=== PATIENT | female | born 1980 | race Hispanic/Latino ===

== ENCOUNTER → 2017-12-28 17:07 | Outpatient (CLI) | payer OTHER, SELFPAY ==
[2017-12-28 18:09] LABS: Absolute Lymphocyte Count 2.17 X10^3/ul (0.83-4.51); Absolute Neutrophil Count 6.4 X10^3/uL (2.0-7.7); Basophil# 0.03 X10^3/uL; Basophil% 0.3 % (0-1); Eosinophil# 0.27 X10^3/uL; Eosinophils% 2.8 % (0-5); Hematocrit 42.3 % (37-47); Hemoglobin 13.7 g/dl (12.0-15.0); Lymphocyte # 2.17 X10^3/ul (4.0); Lymphocyte % 22.8 % (19-41); Mean Corp Hgb Conc 32.4 g/gl (32-36); Mean Corpuscular Hgb 29.2 pg (27.0-32.0); Mean Corpuscular Volume 90.2 fL (81-99); Mean Platelet Vol. 10.1 fl (6.2-12.0); Monocyte# 0.65 X10^3/uL; Monocyte% 6.8 % (0-10); Neutrophil # 6.38 X10^3/uL (2.7-7.7); Neutrophil % 67.2 % (47-70); POSITIVE COUNT NO; POSITIVE DIFFERENTIAL NO; POSITIVE MORPHOLOGY NO; Platelet Count 273 K/mm3 (150-450); RBC Distribution Width SD 42.7 fl (35.1-43.9); Red Blood Count 4.69 M/mm3 (4.2-5.4); White Blood Count 9.5 K/mm3 (4.4-11.0)
[2017-12-28 19:36] LABS: ALB/GLOB Ratio 0.9 RATIO (0.9-2.4); AST(SGOT) 12 U/L (15-37); Alanine Aminotransfer ALT/SGPT 20 U/L (13-56); Albumin, Serum 3.7 g/dL (3.2-5.0); Alkaline Phosphatase 56 U/L (45-117); Anion Gap 8 (5-15); BUN 12 mg/dL (7-18); Calcium,Total 8.8 mg/dL (8.5-10.1); Chloride 103 mmol/L (98-107); Creatinine, Serum 0.67 mg/dL (0.55-1.02); EST Glomerular Filtration Rate 104 mL/min (>60); Est Glom Filt Rate - Afr Amer 126 mL/min (>60); Glucose 90 mg/dL (70-110); Potassium 3.7 mmol/L (3.5-5.1); Protein, Total 7.7 g/dL (6.4-8.2); Sodium Level 138 mmol/L (136-145); T4 Free Direct 0.91 ng/dL (0.76-1.46); Thyroid Stim Hormone (TSH) 1.03 uIU/mL (0.358-3.74)
== END ==
PROVIDERS: Visit Provider Internal Medicine
DX: L29.9 Pruritus, unspecified (principal)
CPT/HCPCS: 36415; 80053; 84439; 84443; 85025

== ENCOUNTER 2018-07-07 12:30 | Outpatient (RCR) | payer OTHER, SELFPAY ==
--- NOTE | 2018-06-21 12:04 | HP.PTEVAL_ITS ---
Patient's Visit Information RAKEL FAJARDO is a 38 year old F referred to Physical Therapy by VANGIE Low with a diagnosis of LBP. Date of Evaluation: 06/21/18 Physical Therapist: Berhane Noland PT, - Visit Plan Frequency: 2-3x /Week Duration: 3 Weeks Plan: Postural edu, REIL, core stab ex's, nustep, and HEP - Subjective Subjective: Pt reports her LBP started yesterday. Pt reports she has had pain in the past intermittently for the last couple years. Pt reports she was bending forward a lot when her back immediately hurt. Pt reports she is having sleep diff secondary to pain. Pt reports she has diff with sitting for a long period and standing for a long period of time. Pt also notes it can take her up to 40 minutes to get out of bed. Walking helps to decrease pain. No N or T in LE 's. No Dx tests at this time. 4/10 at rest, 8/10 at worst - Pain LBP Pain Intensity (Out of 10): 4 Pain Intensity Range: 8 - Objective Posture: Pt sits and stands with hyperlordotic curve. Neuro: B LE sensation is WNL to light touch. B patellar tendon reflex= 2/3. MMT: B LE 5/5 throughout. ROM: Pt is very limited with flex and ext. Repeated movements: REIL decreased pain. - Goals Goal 1:: Decrease LBP x 50% to aid with sleep Goal Time Frame: 2-4 Weeks Goal 2:: Increase L/S ROM x 1 grade to aid with IADL's Goal Time Frame: 2-4 Weeks Goal 3:: Increase core stability x 1 grade to aid with decreasing LBP Goal Time Frame: 2-4 Weeks Goal 4:: I with HEP Goal Time Frame: 2-4 Weeks - Rehabilitation Potential Physical Therapy Diagnosis: Pt has LBP, limited ROM, and diff with sleep secondary to L/S disc derrangement Rehabilitation Potential: Good - Anticipated Interventions Patient/Client Instruction: Educate patient on: Condition, Plan of Care For the Purpose of:: To improve self management Therapeutic Exercise to Include: Strength training, Endurance training, Body mechanics, Flexibilty training, Active ROM, Dynamic Lumbar Stabilization, Myron Exercises For the Purpose of:: To decrease pain, To increase ROM, To improve muscle performance and motor function Cryotherapy (ice pack, ice massage): Yes For the Purpose of:: To decrease pain Thank you for the opportunity to evaluate your patient. For Medicare and Medicare HMO plans, please review the plan of care and approve it. It will need to be FAXED BACK to us at [phone] for Medicare purposes. Please let me know if there are questions or concerns regarding this plan of care. Physician Signature: Date:
--- NOTE | 2018-07-07 13:08 | HP.PTDCSUM ---
HP - PT D/C Summary It has been my pleasure to treat RAKEL FAJARDO under orders from VANGIE Low, for the diagnosis of LBP for a total of 3 visit(s). Discharge Date: Please see the following information for a summary of their discharge status. - Subjective Subjective: Pt reports she has been pain free for a few days now - Pain LBP Pain Intensity (Out of 10): 0 - Objective Objective/Function: 0/10 pain in LB. Pt is now I with HEP. Pt has normal L/S ROM. Pt now has normal core stability. Rx goals achieved - Goals Goal 1:: Decrease LBP x 50% to aid with sleep Goal Progress: Goal Met Goal 2:: Increase L/S ROM x 1 grade to aid with IADL's Goal Progress: Goal Met Goal 3:: Increase core stability x 1 grade to aid with decreasing LBP Goal Progress: Goal Met Goal 4:: I with HEP Goal Progress: Goal Met - Plan Plan: Discharge to HEP - D/C Information If there are questions or concerns regarding this patient's physical therapy, please feel free to call me at [phone]. Thank you for the referral of this patient. Sincerely, Berhane Noland, PT,
== END 2018-07-07 19:00 | disposition home or self-care (01) ==
LOC: PT 12:30
PROVIDERS: Family Provider Internal Medicine; PCP Internal Medicine; Visit Provider Physician Assistant Surgical
DX: S39.012D Strain of muscle, fascia and tendon of lower back, subsequent encounter (principal)
CPT/HCPCS: 97110; 97161; 97530

== ENCOUNTER → 2018-09-15 10:51 | Outpatient (CLI) | payer OTHER, SELFPAY ==
[2018-09-15 12:23] LABS: Absolute Lymphocyte Count 1.56 X10^3/ul (0.83-4.51); Absolute Neutrophil Count 5.7 X10^3/uL (2.0-7.7); Basophil# 0.04 X10^3/uL; Basophil% 0.5 % (0-1); Eosinophil# 0.15 X10^3/uL; Eosinophils% 1.8 % (0-5); Hematocrit 42.1 % (37-47); Hemoglobin 13.8 g/dl (12.0-15.0); Lymphocyte # 1.56 X10^3/ul (4.0); Lymphocyte % 19.2 % (19-41); Mean Corp Hgb Conc 32.8 g/gl (32-36); Mean Corpuscular Hgb 29.7 pg (27.0-32.0); Mean Corpuscular Volume 90.5 fL (81-99); Mean Platelet Vol. 10.3 fl (6.2-12.0); Monocyte# 0.64 X10^3/uL; Monocyte% 7.9 % (0-10); Neutrophil % 70.4 % (47-70); Platelet Count 272 K/mm3 (150-450); RBC Distribution Width CV 12.8 % (11.6-14.6); RBC Distribution Width SD 42.1 fl (35.1-43.9); Red Blood Count 4.65 M/mm3 (4.2-5.4); White Blood Count 8.1 K/mm3 (4.4-11.0)
[2018-09-15 12:33] LABS: POSITIVE COUNT NO; POSITIVE DIFFERENTIAL NO; POSITIVE MORPHOLOGY NO
[2018-09-15 12:34] LABS: Erythrocyte Sedimentation Rate 16 mm/hr (0-20)
[2018-09-15 12:42] LABS: AST(SGOT) 14 U/L (15-37); Alanine Aminotransfer ALT/SGPT 23 U/L (13-56); Albumin, Serum 3.7 g/dL (3.2-5.0); Alkaline Phosphatase 59 U/L (45-117); BUN 14 mg/dL (7-18); Bilirubin, Direct 0.07 mg/dL (0.00-0.30); Creatinine, Serum 0.78 mg/dL (0.55-1.02); EST Glomerular Filtration Rate 87 mL/min (>60); Est Glom Filt Rate - Afr Amer 105 mL/min (>60); Globulin 3.9 g/dL (2.2-4.2); Glucose 79 mg/dL (74-106); Protein, Total 7.6 g/dL (6.4-8.2); Rheumatoid Factor < 10.0 IU/mL (<15); Uric Acid 3.8 mg/dL (2.6-6.0)
[2018-09-15 12:52] LABS: Vitamin D,25 Hydroxy 16.6 ng/mL (29.95-100.01)
[2018-09-16 16:20] LABS: ANTINUCLEAR ANTIBODIES DIRECT Negative (Negative)
[2018-09-20 14:32] LABS: Hep C Antibodies <0.1 s/co ratio (0.0-0.9); Thyroid Peroxidase AB 9 IU/mL (0-34)
== END ==
PROVIDERS: Family Provider Internal Medicine; PCP Internal Medicine; Referring Provider Specialist; Visit Provider Specialist
DX: L50.8 Other urticaria (principal); L50.3 Dermatographic urticaria
CPT/HCPCS: 36415; 80076; 82306; 82565; 82947; 83520; 84443; 84520; 84550; 85025; 85652; 86038; 86376; 86431; 86803

== ENCOUNTER → 2019-08-31 07:55 | Outpatient (CLI) | payer OTHER, SELFPAY ==
[2019-08-21 13:17] VITALS: BMI 26.7
--- NOTE | 2019-08-31 07:57 | US_ITS ---
STUDY: ABDOMINAL ULTRASOUND REASON FOR EXAM: Female, 39 years old. Abdominal pain TECHNIQUE: Transabdominal ultrasound was performed with real-time and static talavera scale imaging. TECHNICAL QUALITY: Adequate. COMPARISON: None. FINDINGS: Liver: The liver measures 13.7 cm. There is normal echogenicity of the liver. The bile ducts are within normal limits. There is hepatic color flow. The direction of portal flow is hepatopetal. There is no demonstrated mass lesion. Portal vein measurement: Gallbladder: Normal distended gallbladder. The gallbladder wall measures 2.1 mm. There is a negative sonographic Kang's sign. There is no pericholecystic fluid. There are no gallstones. Common Bile Duct (C.B.D.): The common bile duct measures 1.6 mm. Pancreas: Normal size of the head, body and tail of the pancreas. There is normal echogenicity of the pancreas. There is no demonstrated pancreatic mass or cyst. Spleen: Normal size of the spleen. The spleen measures 11.6 cm. Right Kidney: Normal size of the right kidney. The right kidney measures 11.3 x 4.9 x 3.1 cm. Normal renal cortex. The right cortex measures 1.2 cm. There is no demonstrated renal mass or cyst. There is no right hydronephrosis. Left Kidney: Normal size of the left kidney. The left kidney measures 10.3 x 4.6 x 5.9 cm. Normal renal cortex. The left cortex measures 1.6 cm. There is a 1.2 cm cyst. There is no left hydronephrosis. Aorta: Mild dilatation of the mid abdominal aorta measuring 2.5 cm diameter. I.V.C.: The IVC is patent. There is no ascites. US/Abdomen Complete IMPRESSION: Left renal cyst. Electronically Signed: Oniel Courtney DO at 18:08 EDT Tel [phone], Service support ,
== END ==
PROVIDERS: Family Provider Internal Medicine; PCP Internal Medicine; Referring Provider Internal Medicine; Visit Provider Internal Medicine
DX: R10.9 Unspecified abdominal pain (principal)
CPT/HCPCS: 76700

== ENCOUNTER → 2020-07-16 09:34 | Outpatient (CLI) | payer OTHER, SELFPAY ==
[2020-07-16 09:13] VITALS: BMI 25.7
[2020-07-16 12:30] LABS: Absolute Lymphocyte Count 1.36 X10^3/uL (0.83-4.51); Absolute Neutrophil Count 4.4 X10^3/uL (2.0-7.7); Basophil# 0.03 X10^3/uL; Basophil% 0.5 % (0-1); Eosinophil# 0.43 X10^3/uL; Eosinophils% 6.5 % (0-5); Hematocrit 41.7 % (37-47); Hemoglobin 13.3 g/dL (12.0-15.0); Lymphocyte # 1.36 X10^3/ul (4.0); Lymphocyte % 20.6 % (19-41); Mean Corp Hgb Conc 31.9 g/dL (32-36); Mean Corpuscular Hgb 29.6 pg (27.0-32.0); Mean Corpuscular Volume 92.7 fL (81-99); Mean Platelet Vol. 10.4 fl (6.2-12.0); Monocyte# 0.41 X10^3/uL; Monocyte% 6.2 % (0-10); NRBC Flagged by Analyzer 0 % (0-5); Neutrophil # 4.36 X10^3/uL (2.7-7.7); Platelet Count 242 K/mm3 (150-450); RBC Distribution Width CV 12.4 % (11.6-14.6); RBC Distribution Width SD 42.1 fl (35.1-43.9); White Blood Count 6.6 K/mm3 (4.4-11.0)
[2020-07-16 12:47] LABS: ALB/GLOB Ratio 1.1 RATIO (0.9-2.4); AST(SGOT) 8 U/L (15-37); Alanine Aminotransfer ALT/SGPT 19 U/L (13-56); Albumin, Serum 3.7 g/dL (3.2-5.0); Alkaline Phosphatase 46 U/L (45-117); Anion Gap 4 (5-15); BUN 14 mg/dL (7-18); BUN/Creat Ratio 15.8 RATIO (10-20); Calcium,Total 8.7 mg/dL (8.5-10.1); Chloride 109 mmol/L (98-107); Cholesterol 184 mg/dL (200); Creatinine, Serum 0.89 mg/dL (0.55-1.02); EST Glomerular Filtration Rate 74 mL/min (>60); Est Glom Filt Rate - Afr Amer 90 mL/min (>60); Globulin 3.5 g/dL (2.2-4.2); Glucose 86 mg/dL (74-106); High Density Lipoprotein 52 mg/dL; Potassium 3.8 mmol/L (3.5-5.1); Protein, Total 7.2 g/dL (6.4-8.2); Sodium Level 141 mmol/L (136-145); Triglycerides 77 mg/dL; Very Low Density Lipoprotein 15 mg/dL (5-40)
[2020-07-16 13:26] LABS: Vitamin D,25 Hydroxy 22.9 ng/mL
== END ==
PROVIDERS: PCP Internal Medicine; Referring Provider Nurse Practitioner Family; Visit Provider Nurse Practitioner Family
DX: Z00.00 Encounter for general adult medical examination without abnormal findings (principal); K21.9 Gastro-esophageal reflux disease without esophagitis; E55.9 Vitamin D deficiency, unspecified
CPT/HCPCS: 36415; 80053; 80061; 82306; 85025

== ENCOUNTER 2020-08-13 06:44 | Day surgery (SDC) | payer OTHER, SELFPAY ==
[2020-07-22 09:27] VITALS: BMI 25.7
--- NOTE | 2020-07-22 09:40 | HP_ITS ---
Intake Vital Signs 07/22/20 BMI 25.7 07/22/20 Height 5 ft 2 in 07/22/20 Weight: 150 lb 6 oz 07/22/20 BMI 27.5 07/22/20 BP 119/49 L 07/22/20 Blood Pressure Location Rt brachial 07/22/20 Position Sitting 07/22/20 Respiration 16 07/22/20 Pulse 52 L 07/22/20 Temp 98.2 F 07/22/20 Temp Source Temporal 07/22/20 Pulse Oximetry (%) 99 07/22/20 Oxygen Delivery Method room air Intake Visit Reasons: Gastroesophageal reflux disease (GERD) Chief Complaint: GERD [employer] Required: No Is patient in pain?: No Allergies No Known Allergies Allergy (Verified 07/22/20 09:26) Medications levonorgestrel 20 mcg/24 hours (5 yrs) 52 mg intrauterine device 1 insert INTRAUTERINE ONCE 12/28/17 [History Confirmed 07/22/20] acetaminophen 325 mg capsule 325 mg PO Q6H PRN 03/29/18 [History Confirmed 07/22/20] cholecalciferol (vitamin D3) 50 mcg (2,000 unit) capsule 50 mcg PO DAILY #90 cap 07/16/20 [Rx Confirmed 07/22/20] omeprazole 20 mg capsule,delayed release 20 mg PO DAILY #90 cap 07/16/20 [Rx Confirmed 07/22/20] Is last menstrual period known: No Post menopausal: No Patient : No PFSH Medical History (Updated 07/22/20 @ 09:[address] Adriano Wagoner MD) History of carpal tunnel syndrome (Acute) Frequent headaches (Acute) Back pain (Acute) Anxiety (Acute) GERD (gastroesophageal reflux disease) (Acute) Hemorrhoids (Acute) Surgical History (Updated 07/22/20 @ 09:25 by Kate Sweet) No pertinent past surgical history (Acute) Family History Father Cancer intestional Hypertension Grandmother Lupus Grandfather Hypertension Myocardial infarction, Onset Age: 60 Grandfather Cancer intestional Social History (Updated 07/22/20 @ 09:[address] Adriano Wagoner MD) alcohol intake: current alcohol intake frequency: a few times a month Alcohol type: wine substance use type: does not use what type of physical activity do you participate in: aerobics frequency: 3-4 times per week HPI HPI HPI: RAKEL FAJARDO, is a 40 F who presents to the office today for HPI HPI Surgical H&P: Yes HPI: RAKEL FAJARDO, is a 40 F who presents to the office today for GERD. The patient notes that over the last 5 years her GERD is been worsening. She was started on a PPI and stayed on it for 2 weeks and was seeing improvement and then stopped and then the pain came back. About 2 to 3 weeks ago she was restarted on a PPI and states that currently she is having no symptoms. ROS General General: No weight change, appetite, fatigue, colon cancer, breast cancer or weakness HEENT HEENT: No difficulty swallowing, eye injury, eye surgery, swollen glands or hoarseness Endo Endocrine: No thyroid disease, diabetes mellitus, thyroid cancer, Hair loss, heat intolerance or cold intolerance Cardio Cardiovascular: No murmur, pacemaker, heart disease, atrial fibrillation, high blood pressure, heart attack, heart stent, palpitations, shortness of breat with exertion or chest pain Psych Psychiatric: Yes anxiety; no depression or hearing voices Resp Respiratory: No shortness of breath, No sleep apnea, No cough, No COPD, No asthma, No emphysema, No wheezing Gastro Gastrointestinal: No abdominal pain, No nausea or vomiting, No diarrhea, No constipation, No blood in stool, Yes acid reflux, Yes hemorrhoids, No ulcers, No gallbladder problem, No black,tarry stools Keith Hematologic: No blood thinners, No blood disorders, No bleeding, No anemia, No blood clots Neuro Neurologic: No weakness Exam Const General: cooperative Orientation: alert, oriented x3 Resp Effort & Inspection: normal respiratory effort Auscultation: clear to auscultation bilaterally Cardio Rate: regular rate Rhythm: regular rhythm Heart Sounds: no murmurs GI Inspection: non-distended Palpation: soft, nontender Assessment & Plan 1. Gastroesophageal reflux disease, esophagitis presence not specified K21.9 Plan The patient has longstanding GERD which did not respond to the first course of PPI. Patient is here for EGD. I discussed EGD with her in detail. The patient would like to proceed with EGD. I explained endoscopy in detail to the patient. I explained the risks including but not limited to stroke or heart attack with anesthesia, perforation of the GI tract, bleeding, infection. I explained that any of these could necessitate further emergency surgery. The patient understands and all questions were answered sufficiently. The patient wishes to proceed with procedure. We discussed the current risks associated with COVID-19. While it is understood that there is a community spread of COVID-19, the risk of rich COVID-19 while at [facility] ([facility]) is very low; however, the risk cannot be completely mitigated because of the community spread of the disease. We discussed in detail the risk of exposure to and/or potential harm posed by the COVID-19 virus with having a surgery/procedure at this time versus the risk of delaying the surgery/procedure. It is not possible to know either the risk of delaying the surgery or procedure or chance of getting an infection with perfect accuracy, but a joint decision was made to proceed at this time with the scheduled surgery/procedure as indicated on the consent form. Patient was notified that we will need to comply with any screening or testing [facility] wishes to perform or that surgery may be delayed for any positive results. Adriano Wagoner MD Pager: [facility] [address] [place] [address], [address] [place] [address] Office: Plan Detail Other Orders Orders: EGD Today Coding Level of Care Code Off vis,new,level 3 Diagnoses Gastroesophageal reflux disease, esophagitis presence not specified K21.9 ??Esophagitis presence: esophagitis presence not specified 07/22/20 0940 <Electronically signed by Adriano ross MD> Date _ Adriano Wagoner MD I have re-examined the patient. There are no clinical changes since date of exam.
--- NOTE | 2020-08-13 | GASB_PTH ---
PATIENT: RAKEL WEBER LOC: EN U#:[id number] AGE/SX: 40/F ROOM: RE08/13/[address]: Dr. Adriano Wagoner MD : 1980 BED: DIS: 08/13/2020 SPEC #: [id number] RECD: 08/13/20 08:56 STATUS: DORCAS REChelsie #: [id number] STEPH: 08/13/20 00:[address]: Adriano Wagoner DEPT: SURGICAL PATHOLOGY RECD BY: Bk Goddard ENTERED: 08/13/20 08:57 SP TYPE: Gastric Bx OTHR DR: Dr. Devante Milan MD Tissues: A - Gastric mucous membrane B - Gastric mucous membrane Procedures: Special Stain Group II Surgery Specimen Level IV Alcian Blue/PAS (control) HEADER OPERATION: E[place] PRE-OP DIAGNOSIS: GERD TISSUE SUBMITTED: A - Antrum biopsy for histo and H. pylori, B - GE junction biopsy MICROSCOPIC DIAGNOSIS A. Antrum, biopsy: Mild gastritis. See microscopic description and comment. B. GE junction, biopsy: Fragments of gastroesophageal mucosa with chronic inflammation and changes consistent with gastroesophageal reflux disease. Intestinal metaplasia (goblet cell metaplasia) is not identified. See comment. SJ:rg 08/14/20 COMMENT A. The results of immunohistochemistry for Helicobacter pylori will be reported separately ([id number]). B. Alcian blue/PAS stain with matched control is used in the evaluation of the specimen. MICROSCOPIC DESCRIPTION Slides are reviewed. A. The specimen shows fragments of gastric mucosa with chronic inflammatory cell infiltrates in the lamina propria consisting of lymphocytes and plasma cells, consistent with mild chronic gastritis. GROSS DESCRIPTION A - Received in fixative is one container labeled with the patient's name and designated antrum biopsy. The specimen consists of multiple irregular fragments of light hirsch soft tissue that in aggregate measure 1 x 0.2 x 0.1 cm. The specimen is totally submitted in one cassette. B - Received in fixative is one container labeled with the patient's name and designated GE junction biopsy. The specimen consists of multiple irregular fragments of light hirsch soft tissue that in aggregate measure 0.5 x 0.4 x 0.1 cm. The specimen is totally submitted in one cassette. / ROCKY:collin 08/13/20 TC:5 CPT: 26162 x2, 10402
[2020-08-13 07:09] VITALS: BP 106/52; PULSE 64; RESP 14; TEMP 36.4; O2SAT 98; BMI 28.0
[2020-08-13 07:17] LABS: Internal QC Validated? YES +Cl - CLEAR BKGD; Pregnancy, Urine Negative Negative
[2020-08-13] MEDS: Lactated Ringers 1,000 ML 100 ML IV (07:26)
--- NOTE | 2020-08-13 08:00 | IMM_PTH ---
PATIENT: RAKEL WEBER LOC: EN U#:[id number] AGE/SX: 40/F ROOM: RE08/13/[address]: Dr. Adriano Wagoner MD : 1980 BED: DIS: 08/13/2020 SPEC #: [id number] RECD: 08/13/20 09:22 STATUS: DORCAS REQ #: [id number] STEPH: 08/13/20 08:[address]: Adriano Wagoner DEPT: IMMUNOHISTOCHEMISTRY RECD BY: Sri Kwon ENTERED: 08/13/20 09:22 SP TYPE: IMMUNO OTHR DR: Dr. Devante Milan MD Tissues: A - Stomach, NOS Procedures: H Pylori (initial) PHYSICIAN & INSTITUTION [place] [address] SPECIMEN INFORMATION: Tissue Source: A - Antrum biopsy Clinical Info: GERD Specimen Number: [id number] CPT code: 04237 METHODOLOGY: Deparaffinized sections of prefer/formalin-fixed tissue or PAP/DQ stained slides are incubated with monoclonal/polyclonal antibodies/oligonucleotide probes. Localization is made via biotin free immunoperoxidase method. Appropriate controls are performed and reacted as expected. Results on target cell population are indicated in the following table: RESULTS: ANTIBODY / CLONE RESULT Block A H Pylori (polyclonal) negative These tests were developed and their performance characteristics determined by [facility]. They may not have been cleared or approved by the U.S. Food and Drug Administration. The FDA has determined that such clearance or approval is not necessary. INTERPRETATION: A. Antrum biopsy: Negative for Helicobacter pylori organisms. SJ:collin 08/15/20
--- NOTE | 2020-08-13 08:13 | OP.EGD_ITS ---
Patient Name: Kasey Hernandez Procedure Date: 08/13/2020 7:00 AM Date of : 1980 Age: 40 Procedure: Upper GI endoscopy Indications: Heartburn, Suspected esophageal reflux Providers: Adriano Wagoner MD Referring MD: Devante Milan MD Medicines: Monitored Anesthesia Care Patient Profile: This is a 40 year old female. Refer to note in patient chart for documentation of history and physical. Complications: No immediate complications. Estimated blood loss: Minimal. Procedure: Pre-Anesthesia Assessment: - Prior to the procedure, a History and Physical was performed, and patient medications and allergies were reviewed. The patient's tolerance of previous anesthesia was also reviewed. The risks and benefits of the procedure and the sedation options and risks were discussed with the patient. All questions were answered, and informed consent was obtained. Prior Anticoagulants: The patient has taken no previous anticoagulant or antiplatelet agents. ASA Grade Assessment: II - A patient with mild systemic disease. After reviewing the risks and benefits, the patient was deemed in satisfactory condition to undergo the procedure. After obtaining informed consent, the endoscope was passed under direct vision. Throughout the procedure, the patient's blood pressure, pulse, and oxygen saturations were monitored continuously. The gastroscope was introduced through the mouth, and advanced to the second part of duodenum. The upper GI endoscopy was accomplished without difficulty. The patient tolerated the procedure well. Scope In: 8:02:14 AM Scope Out: 8:06:14 AM Total Procedure Duration Time 0 hours 4 minutes 0 seconds Findings: Mildly severe esophagitis with no bleeding was found. Biopsies were taken with a cold forceps for histology. The stomach was normal. The examined duodenum was normal. Biopsies were taken with a cold forceps in the gastric antrum for Helicobacter pylori testing. Impression: - Mildly severe reflux esophagitis. Biopsied. - Normal stomach. - Normal examined duodenum. - Biopsies were taken with a cold forceps for Helicobacter pylori testing. Recommendation: - Await pathology results. - Discharge patient to home. - Resume previous diet. - Continue present medications. Procedure Code(s): --- Professional --- 60941, Esophagogastroduodenoscopy, flexible, transoral; with biopsy, single or multiple Diagnosis Code(s): --- Professional --- K21.0, Gastro-esophageal reflux disease with esophagitis R12, Heartburn CPT copyright 2017 [employer]. All rights reserved. The codes documented in this report are preliminary and upon education coordinator review may be revised to meet current compliance requirements. Adriano Wagoner MD 08/13/2020 8:12:55 AM This report has been signed electronically. Number of Addenda: 0 Note Initiated On: 08/13/2020 7:00 AM
--- NOTE | 2020-08-13 08:13 | OP.CCLET_ITS ---
08/13/2020 Devante Milan MD [address] [place] [address] [place] [address] Re : Upper GI endoscopy procedure for Kasey Hernandez Dear Dr. Milan This procedure was performed on Thursday, August 13, 2020. My impressions and recommendations are as follows: Impressions : - Mildly severe reflux esophagitis. Biopsied. - Normal stomach. - Normal examined duodenum. - Biopsies were taken with a cold forceps for Helicobacter pylori testing. Recommendations : - Await pathology results. - Discharge patient to home. - Resume previous diet. - Continue present medications. My findings are described in the full procedure note, which is enclosed. If I can be of further assistance, please feel free to contact me at Doctor phone number(s): , Work: . Sincerely, Adriano Wagoner MD 08/13/2020 8:12:55 AM This report has been signed electronically.
[2020-08-13 08:14] VITALS: BP 106/52; BP 95/41; PULSE 69; RESP 16; TEMP 36.3; O2SAT 100
[2020-08-13 08:20] VITALS: BP 106/52; BP 98/47; PULSE 67; RESP 16; O2SAT 98
[2020-08-13 08:25] VITALS: BP 100/58; BP 106/52; PULSE 56; RESP 16; O2SAT 97
[2020-08-13 08:29] VITALS: BP 106/48; BP 106/52; PULSE 53; RESP 16; TEMP 36.6; O2SAT 100
[2020-08-13 09:34] VITALS: BP 106/52; BP 107/68; PULSE 47; RESP 16; TEMP 36.6; O2SAT 100
== END 2020-08-13 09:36 | disposition home or self-care (01) ==
LOC: EN 06:45 → AC 06:46
PROVIDERS: Anesthesiology; PCP Internal Medicine; Referring Provider Internal Medicine; Visit Provider Surgery
PROC: 0DJ08ZZ Inspection of Upper Intestinal Tract, Via Natural or Artificial Opening Endoscopic (ICD-10-PCS; CPT 43235; principal; 2020-08-13 07:55)
DX: K29.50 Unspecified chronic gastritis without bleeding (principal); K21.0 Gastro-esophageal reflux disease with esophagitis; R12 Heartburn; Z79.3 Long term (current) use of hormonal contraceptives
CPT/HCPCS: 43239; 81025; 87635; 88305; 88313; 88342; C9803; J7120; J2405; U0003

== ENCOUNTER → 2021-01-11 14:44 | Outpatient (CLI) | payer SELFPAY | PROVIDERS: Referring Provider Physician Assistant Surgical; Visit Provider Physician Assistant Surgical | DX: R30.0 Dysuria (principal) | CPT/HCPCS: 87086; 87088 ==

== ENCOUNTER → 2021-01-15 10:51 | Outpatient (CLI) | payer OTHER, SELFPAY ==
[2021-01-15 10:02] VITALS: BMI 28.5
[2021-01-15 10:53] LABS: Mucous, Urine 0 SEEN /hpf (<or=2+)
[2021-01-15 12:47] LABS: Color, Urine Yellow (Yellow); Glucose, Dipstick Normal (Normal); Ketone-Dipstick Negative (Negative); Leukocyte Esterase-Dipstick 25 /ul (Negative); Nitrite-Dipstick Negative (Negative); Occult Blood-Urine 25 /ul (Negative); Protein-Dipstick Negative (Negative); Specific Gravity, Urine 1.015 (1.002-1.030); Urine Bilirubin Dipstick Negative (Negative); Urine Clarity Clear (Clear); Urine Urobilinogen Normal (Normal)
[2021-01-15 13:17] LABS: Red Blood Cells-Urine 0-5 SEEN /hpf (0-5); Squamous Epithelial Cells - UA 5-10 SEEN /hpf (5-10); White Blood Cells 0-5 SEEN /hpf (0-5)
[2021-01-15 13:18] LABS: Bacteria RARE /hpf (None Seen)
[2021-01-18 03:06] LABS: Chlamydia By Nucleic Acid AMP Negative (Negative)
[2021-01-18 08:56] LABS: Gonococcus By Nucleic Acid AMP Negative (Negative)
== END ==
PROVIDERS: PCP Internal Medicine; Referring Provider Internal Medicine; Visit Provider Internal Medicine
DX: N89.8 Other specified noninflammatory disorders of vagina (principal); R30.0 Dysuria
CPT/HCPCS: 81001; 87070; 87086; 87088; 87205; 87491; 87591; 87661

== ENCOUNTER → 2021-01-17 09:15 | Outpatient (CLI) | payer OTHER, SELFPAY ==
[2021-01-15 10:02] VITALS: BMI 28.5
[2021-01-17 13:27] LABS: Probe Check PASS; Sample Adequacy Control PASS; Specimen Processing Control PASS; Trichomonas Vag DNA by PCR Negative (Negative)
== END ==
PROVIDERS: PCP Internal Medicine; Referring Provider Internal Medicine; Visit Provider Internal Medicine
DX: N89.8 Other specified noninflammatory disorders of vagina (principal)
CPT/HCPCS: 87661

== ENCOUNTER → 2021-06-06 09:53 | Outpatient (CLI) | payer OTHER, SELFPAY ==
[2021-06-06 09:36] VITALS: BMI 28.0
[2021-06-06 12:26] LABS: Absolute Lymphocyte Count 1.34 X10^3/uL (0.83-4.51); Absolute Neutrophil Count 5.3 X10^3/uL (2.0-7.7); Basophil# 0.03 X10^3/uL; Basophil% 0.4 % (0-1); Eosinophil# 0.17 X10^3/uL; Eosinophils% 2.3 % (0-5); Hemoglobin 13.7 g/dL (12.0-15.0); Lymphocyte # 1.34 X10^3/ul (0.83-4.51); Lymphocyte % 18.1 % (19-41); Mean Corp Hgb Conc 32.6 g/dL (32-36); Mean Corpuscular Hgb 29.8 pg (27.0-32.0); Mean Corpuscular Volume 91.5 fL (81-99); Mean Platelet Vol. 10.2 fl (6.2-12.0); Monocyte# 0.54 X10^3/uL; Monocyte% 7.3 % (0-10); NRBC Flagged by Analyzer 0 % (0-5); Neutrophil # 5.32 X10^3/uL (2.7-7.7); Neutrophil % 71.8 % (47-70); Platelet Count 252 K/mm3 (150-450); RBC Distribution Width CV 12.5 % (11.6-14.6); RBC Distribution Width SD 41.6 fl (35.1-43.9); Red Blood Count 4.59 M/mm3 (4.2-5.4); White Blood Count 7.4 K/mm3 (4.4-11.0)
[2021-06-06 12:27] LABS: AST(SGOT) 17 U/L (15-37); Alanine Aminotransfer ALT/SGPT 39 U/L (13-56); Albumin, Serum 3.6 g/dL (3.2-5.0); Alkaline Phosphatase 49 U/L (45-117); Anion Gap 6 (5-15); BUN 13 mg/dL (7-18); BUN/Creat Ratio 14.5 RATIO (10-20); Calcium,Total 9.1 mg/dL (8.5-10.1); Chloride 105 mmol/L (98-107); EST Glomerular Filtration Rate 73 mL/min (>60); Est Glom Filt Rate - Afr Amer 88 mL/min (>60); Globulin 3.7 g/dL (2.2-4.2); Glucose 73 mg/dL (74-106); Protein, Total 7.3 g/dL (6.4-8.2); Sodium Level 139 mmol/L (136-145)
== END ==
PROVIDERS: PCP Internal Medicine; Referring Provider Internal Medicine; Visit Provider Internal Medicine
DX: K92.2 Gastrointestinal hemorrhage, unspecified (principal)
CPT/HCPCS: 36415; 80053; 85025

== ENCOUNTER 2021-07-09 07:04 | Day surgery (SDC) | payer OTHER, SELFPAY ==
[2021-06-11 15:01] VITALS: BMI 28.0
[2021-07-09] VITALS (7 sets, daily range): BP systolic 94–120; BP diastolic 50–69; PULSE 46–55; RESP 16; TEMP 36.1–36.4; O2SAT 97–100; BMI 28.5
[2021-07-09 07:32] LABS: Internal QC Validated? YES +Cl - CLEAR BKGD; Pregnancy, Urine Negative Negative
[2021-07-09] MEDS: Lactated Ringers 1,000 ML 100 ML IV (07:34)
--- NOTE | 2021-07-09 07:56 | PCM.HP.BLA ---
History and Physical Date of Admission: 07/09/21 Date of Service: 06/11/21 Intake Vital Signs 06/11/21 14:59 06/11/21 15:01 Height 5 ft 2 in Weight: 159 lb 4 oz BMI 29.1 28.0 BP 118/74 Blood Pressure Location Rt brachial Position Sitting Respiration 18 Pulse 68 Pulse Source NIBP Temp 98.5 F Temp Source Temporal Pulse Oximetry (%) 96 Oxygen Delivery Method room air Intake Visit Reasons: Hemorrhoids Chief Complaint: Hemorrhoids/blood per rectum Housing Management Representative Required: No Is patient in pain?: No Allergies No Known Allergies Allergy (Verified 06/11/21 15:00) Medications levonorgestrel 20 mcg/24 hours (6 yrs) 52 mg intrauterine device 1 insert INTRAUTERINE ONCE 12/28/17 [History Confirmed 06/11/21] acetaminophen 325 mg capsule 325 mg PO Q6H PRN 03/29/18 [History Confirmed 06/11/21] cholecalciferol (vitamin D3) 50 mcg (2,000 unit) capsule 50 mcg PO DAILY #90 cap 07/16/20 [Rx Confirmed 06/11/21] hydrocortisone-pramoxine 2.5 %-1 % (4g) rectal cream 1 applic RC BID PRN gm 06/11/21 [History] omeprazole 20 mg capsule,delayed release 20 mg PO DAILY PRN cap 06/11/21 [History] Is last menstrual period known: No Post menopausal: No Patient : No PFSH Medical History (Updated 06/12/21 @ 12:[address] Christine Sen MD) Anxiety Back pain Frequent headaches GERD (gastroesophageal reflux disease) Hemorrhoids History of carpal tunnel syndrome Surgical History History of endoscopy No pertinent past surgical history Family History (Updated 06/11/21 @ 14:59 by Kate Sweet) Father Cancer intestional Hypertension Grandmother Lupus Grandfather Hypertension Myocardial infarction, Onset Age: 60 Colon cancer Grandfather Cancer intestional Social History Smoking Status: Never smoker alcohol intake: current alcohol intake frequency: a few times a month Alcohol type: wine substance use type: does not use what type of physical activity do you participate in: aerobics frequency: 3-4 times per week HPI HPI HPI: RAKEL FAJARDO, is a 41 F who presents to the office today for bright red blood per rectum. Patient states she has had a hemorrhoids for a while occasionally will flareup especially if she is constipated. Patient states that she has found that dairy makes her constipated if she avoids that and eats fruits and vegetables usually has bowel moods daily. Patient states that the prior to June 01 she did have bright red blood per rectum like a bit of blood in the toilet. Patient is unsure if there is any clots. Patient did admit to straining some. Patient states she had about 3 episodes which had blood in the abdomen she returned to normal bowel function without any blood. Patient has never had a colonoscopy denies any family history of colon cancer. ROS General General: No weight change, appetite, fatigue, colon cancer, breast cancer or weakness HEENT HEENT: No difficulty swallowing, eye injury, eye surgery, swollen glands or hoarseness Endo Endocrine: No thyroid disease, diabetes mellitus, thyroid cancer, Hair loss, heat intolerance or cold intolerance Musc Musculoskeletal: Yes back problems; No arthritis, rheumatoid arthritis, gout or joint pain Cardio Cardiovascular: No murmur, pacemaker, heart disease, atrial fibrillation, high blood pressure, heart attack, heart stent, palpitations, shortness of breat with exertion or chest pain Psych Psychiatric: No depression, anxiety or hearing voices Resp Respiratory: No shortness of breath, No sleep apnea, No cough, No COPD, No asthma, No emphysema and No wheezing Gastro Gastrointestinal: No abdominal pain, No nausea or vomiting, No diarrhea, No constipation, No blood in stool, Yes acid reflux, Yes hemorrhoids, No ulcers, No gallbladder problem and No black,tarry stools Keith Hematologic: No blood thinners, No blood disorders, No bleeding, No anemia and No blood clots Neuro Neurologic: No weakness Exam Const General: cooperative, healthy appearing, comfortable and no acute distress Neck Neck: normal visual inspection Resp Effort & Inspection: normal respiratory effort Cardio Rate: regular rate GI Inspection: non-distended Palpation: soft, no guarding and nontender Other: PROSPER: Minimal residual hemorrhoidal tissue at 12:00 and 6:00, small internal hemorrhoid appreciated on exam, no gross blood, no masses Skin General: no rashes or lesions noted Neuro General: patient oriented x3 Psych Affect: normal affect COVID (Procedure Consent) Procedure Criteria Procedure Criteria: Yes Elective The surgeon/proceduralist and patient have discussed in detail the risk of exposure to and/or potential harm posed by the COVID-19 virus with having a surgery/procedure at this time versus the risk of delaying the surgery/procedure. It is not possible to know either the risk of delaying the surgery or procedure or chance of getting an infection with perfect accuracy, but a joint decision was made between the patient and the surgeon/proceduralist to proceed at this time with the scheduled surgery/procedure as indicated on the consent form. Assessment and Plan Assessment and Plan (1) BRBPR (bright red blood per rectum): Status: Acute (2) Hemorrhoids: Status: Acute Plan - Dr. Christine Sen MD: Did offer patient hydrocortisone/lidocaine ointment/suppository however patient states that her hemorrhoids are not causing her any problems currently does not need medication at this time. I have discussed the above with the patient. I have offered the patient colonoscopy for evaluation. I have explained the risks/benefits of the procedure and described the procedure. I have discussed the risks with the patient, including but not limited to: infection, bleeding, perforation of the GI tract requiring emergency surgery, inability to complete the procedure, injury to any internal organs, complications of anesthesia, etc. - the patient understands and agrees to proceed. I have answered all the patient's questions to the patient's satisfaction and the patient has no further questions. The patient has been given instructions for the colon cleansing preparation. 1 day of clears, MiraLAX Dulcolax split prep. Christine Sen M.D. Pager: [phone] [facility] [address] [place] [address], [address] [place] [address] Office: [phone] Coding Level of Care Code Off vis,new,level 3 Diagnoses BRBPR (bright red blood per rectum) K62.5 Hemorrhoids K64.9 06/12/21 1252<Electronically signed by Christine Sen MD>Date Christine Sen MD
--- NOTE | 2021-07-09 22:01 | OP.CCLET_ITS ---
07/09/2021 Devante Milan MD [address] [place] [address] Re : Colonoscopy procedure for Kasey Hernandez Dear Dr. Milan This procedure was performed on Friday, July 09, 2021. My impressions and recommendations are as follows: Impressions : - Hemorrhoids found on perianal exam. - Non-bleeding external and internal hemorrhoids. - The examination was otherwise normal. - No specimens collected. Recommendations : - Discharge patient to home. - Resume previous diet. - Continue present medications. - Repeat colonoscopy in 10 years for screening purposes. My findings are described in the full procedure note, which is enclosed. If I can be of further assistance, please feel free to contact me at Doctor phone number(s): , Work: . Sincerely, MD Christine Platt MD 07/09/2021 9:22:02 AM This report has been signed electronically.
--- NOTE | 2021-07-09 22:01 | OP.COLON_ITS ---
Patient Name: Kasey Hernandez Procedure Date: 07/09/2021 8:39 AM Date of : 1980 Age: 41 Procedure: Colonoscopy Indications: Rectal bleeding Providers: Christine Sen MD Referring MD: Devante Milan MD Medicines: Monitored Anesthesia Care Patient Profile: This is a 41 year old female. Last Colonoscopy: none. The patient's first colonoscopy is today. Complications: No immediate complications. Procedure: Pre-Anesthesia Assessment: - Prior to the procedure, a History and Physical was performed, and patient medications and allergies were reviewed. The patient's tolerance of previous anesthesia was also reviewed. The risks and benefits of the procedure and the sedation options and risks were discussed with the patient. All questions were answered, and informed consent was obtained. Prior Anticoagulants: The patient has taken no previous anticoagulant or antiplatelet agents. ASA Grade Assessment: Per anesthesia. After reviewing the risks and benefits, the patient was deemed in satisfactory condition to undergo the procedure. After I obtained informed consent, the scope was passed under direct vision. Throughout the procedure, the patient's blood pressure, pulse, and oxygen saturations were monitored continuously. The pediatric colonoscope was introduced through the anus and advanced to the cecum, identified by the appendiceal orifice, ileocecal valve and palpation. The colonoscopy was performed without difficulty. The patient tolerated the procedure well. The quality of the bowel preparation was good. Scope In: 8:51:26 AM Scope Withdrawal Time 0 hours 9 minutes 29 seconds Scope Out: 9:11:57 AM Total Procedure Duration Time 0 hours 20 minutes 31 seconds Findings: Hemorrhoids were found on perianal exam. Non-bleeding external and internal hemorrhoids were found. The hemorrhoids were Grade I (internal hemorrhoids that do not prolapse). The exam was otherwise without abnormality. Impression: - Hemorrhoids found on perianal exam. - Non-bleeding external and internal hemorrhoids. - The examination was otherwise normal. - No specimens collected. Recommendation: - Discharge patient to home. - Resume previous diet. - Continue present medications. - Repeat colonoscopy in 10 years for screening purposes. Procedure Code(s): --- Professional --- 54791, Colonoscopy, flexible; diagnostic, including collection of specimen(s) by brushing or washing, when performed (separate procedure) Diagnosis Code(s): --- Professional --- K64.0, First degree hemorrhoids K62.5, Hemorrhage of anus and rectum CPT copyright 2017 [employer]. All rights reserved. The codes documented in this report are preliminary and upon remote broadcast engineer review may be revised to meet current compliance requirements. MD Christine Platt MD 07/09/2021 9:22:02 AM This report has been signed electronically. Number of Addenda: 0 Note Initiated On: 07/09/2021 8:39 AM
== END 2021-07-09 10:25 ==
LOC: EN 07:06 → AC 07:06
PROVIDERS: Anesthesiology; PCP Internal Medicine; Referring Provider Internal Medicine; Visit Provider Surgery
PROC: 0DJD8ZZ Inspection of Lower Intestinal Tract, Via Natural or Artificial Opening Endoscopic (ICD-10-PCS; CPT 45378; principal; 2021-07-09 08:40)
DX: K64.0 First degree hemorrhoids (principal); K62.5 Hemorrhage of anus and rectum; Z79.3 Long term (current) use of hormonal contraceptives; Z87.19 Personal history of other diseases of the digestive system
CPT/HCPCS: 45378; 81025; J7120; J2405

== ENCOUNTER 2021-11-10 08:30 | Outpatient (RCR) | payer OTHER, SELFPAY ==
--- NOTE | 2021-10-06 08:55 | HP.PTEVAL_ITS ---
Patient's Visit Information RAKEL FAJARDO is a 41 year old F referred to Physical Therapy by VANGIE Quigley with a diagnosis of LBP. Date of Evaluation: 10/06/21 Physical Therapist: MODESTO Abreu - Visit Plan Frequency: 1-2x /Week Duration: 4 Weeks Plan: 1-2X/ week for 4 weeks for centralization of symptoms, proper standing and sitting posture, neutral spine core stability, with HEP - Subjective Pt reports that she has been having some back pain and gets it so often but more often in the past year. Starts LBP and tough to get out of bed and walk. Most of the time stretching helps. Generally she is careful with how she moves and changes positions. This last one has lasted. She is not like she was 3 weeks ago. Starts in the back and then it starts on the L side of the leg and sometimes in the knee. What is staying is the lateral leg pain. That is why she saw the Dr. She has muscle relaxors at night. She is better over the weekends. She works at [email or web address] and spends a lot of time at the computer. She does have a standing desk and tries to alternate her position. She came here 3 years ago and tries to remember some of her exercises. She tries Yoga 1 X/ week. She swims 1-2 times/ week. Sometimes it hurts while she is swimming. Butterfly and flip turns hurt it. She has no N&T but she has a warmth feeling in her leg. She has pain in her back as well and pinpoint areas. She has constant pain. Walking helps sometimes the most. She has not had an X-ray or MRI. PCP is Dr Calvillo and she saw Physcian Donnie. - Pain LBP Pain Intensity (Out of 10): 1 L Leg Pain Pain Intensity (Out of 10): 3 - Objective Gait: Walks with slightly decreased stance time on the L LE. Otherwise normal gait pattern. Pt was able to walk on heels and toes without difficulty. LE MMT: hip flex R 4-/5 and L 4/5, knee ext B 4/5, Knee flex B 4/5, Hip abd R 4/5 and L 4-/5, increase pain and weakness in bridge position and needs to use B UE to help get into the bridge position and only able to achieve 1/2 normal ROM bridge position. +SLR on the R for L sided LBP. -SLR on the L. +SLUMP test on the R for L sided LBP and - SLUMP on the R. 2+/3 patellar B DTR's. Prone lying in crease L hip and anterior hip pain. Prone to ZOHAIB X 10... pain in L hip and thigh moved to back. Prone to Prone press up X1.. no increase in pain and then X 10 pain improved in LB..... additional 2 X 10 and pt had some stretch thigh pain but the lateral thigh pain and back pain were gone. Instructed pt in proper sitting posture with a L-roll. - Balance/Special Test Scores Oswestry Low Back Score: 11 - Goals Goal 1:: I HEP for centralization of symptoms and core stability Goal Time Frame: 4-6 Weeks Goal 2:: Be able to sit and stand at work with out having back and L leg pain Goal Time Frame: 4-6 Weeks Goal 3:: Centralize LBP Goal Time Frame: 4-6 Weeks Goal 4:: Demonstrate proper standing and sitting posture Goal Time Frame: 4-6 Weeks - Rehabilitation Potential Rehabilitation Potential: Good - Anticipated Interventions Patient/Client Instruction: Educate patient on: Condition, Plan of Care For the Purpose of:: To decrease pain, To increase ROM, To improve nutrient delivery to tissue, To improve muscle performance and motor function, To improve ability to perform ADL's, To increase tolerance to activity/condition/position, To improve health of tissue, To increase flexibility/ROM Therapeutic Exercise to Include: Strength training, Body mechanics, Postural training, Active ROM, Dynamic Lumbar Stabilization, Myron Exercises, Scapular Strength/Stabilization For the Purpose of:: To decrease pain, To decrease swelling/inflammation, To increase ROM, To improve nutrient delivery to tissue, To improve muscle performance and motor function, To improve ability to perform ADL's, To improve health of tissue, To increase flexibility/ROM Manual Therapy Techniques to Include: Mobilization, Passive ROM, Soft tissue mobilization For the Purpose of:: To decrease pain, To increase ROM, To improve nutrient delivery to tissue, To improve health of tissue, To decrease soft tissue restriction, To increase flexibility/ROM IF ES: Yes Cryotherapy (ice pack, ice massage): Yes Thermo therapy (hot pack): Yes For the Purpose of:: To decrease pain, To increase ROM, To improve nutrient delivery to tissue Thank you for the opportunity to evaluate your patient. For Medicare and Medicare HMO plans, please review the plan of care and approve it. It will need to be FAXED BACK to us at [phone] for Medicare purposes. For Medicare only, by signing this I certify the plan of care. Please let me know if there are questions or concerns regarding this plan of care. Physician Signature: Date:
--- NOTE | 2021-11-10 09:03 | HP.PTDCSUM ---
It has been my pleasure to treat RAKEL FAJARDO referred by VANGIE Quigley, with the diagnosis of LBP for a total of 5 visit(s). Discharge Date: 11/10/21 Please see the following information for a summary of their discharge status. Subjective: Pt reports that the bridges with leg up increase her back pain and occ shoulder pain with the press ups. LBP Pain Intensity (Out of 10): 1 L Leg Pain Pain Intensity (Out of 10): 0 % Improvement: 80 Objective/Function: Pt LB still weak with bridges with leg lift so we going back to regular bridges and will try and progress as able. Goal 1:: I HEP for centralization of symptoms and core stability Goal Progress: Goal Met Goal 2:: Be able to sit and stand at work with out having back and L leg pain Goal Progress: Goal Met Goal 3:: Centralize LBP Goal Progress: Goal Met Goal 4:: Demonstrate proper standing and sitting posture Goal Progress: Goal Met Plan: DC PT and pt will call in if she needs further assistance or increase in pain Discharge Comments: DC PT to HEP If there are questions or concerns regarding this patient's physical therapy, please feel free to call me at [phone]. Thank you for the referral of this patient. Sincerely, Annmarie Cantor, MPT Balance/Gait/Functional tests - Balance/Special Test Scores Oswestry Low Back Score: 2
== END 2021-11-10 19:00 | disposition home or self-care (01) ==
LOC: PT 08:30
PROVIDERS: PCP Internal Medicine; Referring Provider Physician Assistant; Visit Provider Physician Assistant
DX: M54.50 Low back pain, unspecified (principal); G89.29 Other chronic pain
CPT/HCPCS: 97110; 97161

== ENCOUNTER → 2022-10-19 | Outpatient (CLI) | payer OTHER, SELFPAY ==
[2022-10-19 16:50] LABS: Absolute Lymphocyte Count 1.03 X10^3/uL (0.83-4.51); Basophil# 0.04 X10^3/uL; Basophil% 0.6 % (0-1); Eosinophil# 0.31 X10^3/uL; Eosinophils% 4.4 % (0-5); Hematocrit 41.4 % (37-47); Hemoglobin 13.9 g/dL (12.0-15.0); Lymphocyte # 1.03 X10^3/ul (0.83-4.51); Lymphocyte % 14.5 % (19-41); Mean Corp Hgb Conc 33.6 g/dL (32-36); Mean Corpuscular Hgb 30.5 pg (27.0-32.0); Monocyte# 0.68 X10^3/uL; Monocyte% 9.6 % (0-10); NRBC Flagged by Analyzer 0 % (0-5); Neutrophil # 5.04 X10^3/uL (2.7-7.7); Neutrophil % 70.8 % (47-70); Platelet Count 233 K/mm3 (150-450); RBC Distribution Width CV 12.6 % (11.6-14.6); RBC Distribution Width SD 41.5 fl (35.1-43.9); Red Blood Count 4.55 M/mm3 (4.2-5.4); White Blood Count 7.1 K/mm3 (4.4-11.0)
[2022-10-19 17:11] LABS: Vitamin B12 344 pg/mL (211-911); Vitamin D,25 Hydroxy 26.7 ng/mL
[2022-10-19 17:17] LABS: ALB/GLOB Ratio 0.9 RATIO (0.9-2.4); AST(SGOT) 13 U/L (15-37); Alanine Aminotransfer ALT/SGPT 24 U/L (13-56); Albumin, Serum 3.6 g/dL (3.2-5.0); Alkaline Phosphatase 53 U/L (45-117); Anion Gap 7 (5-15); BUN 14 mg/dL (7-18); BUN/Creat Ratio 19.6 RATIO (10-20); Chloride 106 mmol/L (98-107); Creatinine, Serum 0.72 mg/dL (0.55-1.02); EST Glomerular Filtration Rate 94 mL/min (>60); Est Glom Filt Rate - Afr Amer 114 mL/min (>60); Globulin 3.9 g/dL (2.2-4.2); Glucose 98 mg/dL (74-106); Potassium 3.6 mmol/L (3.5-5.1); Protein, Total 7.5 g/dL (6.4-8.2); Sodium Level 139 mmol/L (136-145); T4 Free Direct 0.85 ng/dL (0.76-1.46); Thyroid Stim Hormone (TSH) 1.52 uIU/mL (0.358-3.74)
== END | disposition home or self-care (01) ==
LOC: BIMLAB 15:54
PROVIDERS: PCP Internal Medicine; Visit Provider Internal Medicine
DX: F32.A Depression, unspecified (principal)
CPT/HCPCS: 36415; 80053; 82306; 82607; 84439; 84443; 85025

== ENCOUNTER → 2023-09-13 | Outpatient (CLI) | payer OTHER, SELFPAY ==
[2023-09-13 12:17] LABS: Absolute Lymphocyte Count 1.91 X10^3/uL (0.83-4.51); Absolute Neutrophil Count 4.6 X10^3/uL (2.0-7.7); Basophil# 0.05 X10^3/uL; Basophil% 0.7 % (0-1); Eosinophil# 0.17 X10^3/uL; Eosinophils% 2.4 % (0-5); Hematocrit 42.9 % (37-47); Hemoglobin 13.7 g/dL (12.0-15.0); Lymphocyte # 1.91 X10^3/ul (0.83-4.51); Lymphocyte % 26.6 % (19-41); Mean Corp Hgb Conc 31.9 g/dL (32-36); Mean Corpuscular Hgb 30.1 pg (27.0-32.0); Mean Corpuscular Volume 94.3 fL (81-99); Mean Platelet Vol. 10.3 fl (6.2-12.0); Monocyte# 0.43 X10^3/uL; NRBC Flagged by Analyzer 0 % (0-5); Platelet Count 243 K/mm3 (150-450); RBC Distribution Width CV 12.6 % (11.6-14.6); RBC Distribution Width SD 43.8 fl (35.1-43.9); Red Blood Count 4.55 M/mm3 (4.2-5.4); White Blood Count 7.2 K/mm3 (4.4-11.0)
[2023-09-13 12:45] LABS: Vitamin B12 300 pg/mL (211-911); Vitamin D,25 Hydroxy 28.2 ng/mL
[2023-09-13 12:58] LABS: AST(SGOT) 11 U/L (15-37); Alanine Aminotransfer ALT/SGPT 20 U/L (13-56); Albumin, Serum 3.5 g/dL (3.2-5.0); Alkaline Phosphatase 51 U/L (45-117); Anion Gap 5 (5-15); BUN 13 mg/dL (7-18); BUN/Creat Ratio 15.7 RATIO (10-20); Calcium,Total 8.9 mg/dL (8.5-10.1); Chloride 108 mmol/L (98-107); Cholesterol 189 mg/dL (200); Creatinine, Serum 0.83 mg/dL (0.55-1.02); EST Glomerular Filtration Rate 79 mL/min (>60); Est Glom Filt Rate - Afr Amer 96 mL/min (>60); Globulin 3.6 g/dL (2.2-4.2); Glucose 90 mg/dL (74-106); High Density Lipoprotein 55 mg/dL; Protein, Total 7.1 g/dL (6.4-8.2); Sodium Level 139 mmol/L (136-145); Triglycerides 84 mg/dL; Very Low Density Lipoprotein 17 mg/dL (5-40)
== END | disposition home or self-care (01) ==
LOC: BIMLAB 10:28
PROVIDERS: PCP Internal Medicine; Visit Provider Internal Medicine
DX: Z00.00 Encounter for general adult medical examination without abnormal findings (principal); Z13.21 Encounter for screening for nutritional disorder; E55.9 Vitamin D deficiency, unspecified
CPT/HCPCS: 36415; 80053; 80061; 82306; 82607; 85025

== ENCOUNTER 2023-10-11 08:42 | Outpatient (RCR) | payer OTHER, SELFPAY | END 2023-10-28 23:59 | LOC: NS 08:42 | PROVIDERS: PCP Internal Medicine; Referring Provider Internal Medicine; Visit Provider Internal Medicine | DX: Z71.3 Dietary counseling and surveillance (principal); E66.3 Overweight | CPT/HCPCS: 97802 ==

== ENCOUNTER 2023-11-10 07:59 | Outpatient (RCR) | payer OTHER, SELFPAY | END 2023-11-28 23:59 | LOC: NS 07:59 | PROVIDERS: PCP Internal Medicine; Referring Provider Internal Medicine; Visit Provider Internal Medicine | DX: Z71.3 Dietary counseling and surveillance (principal); E66.3 Overweight; Z68.25 Body mass index [BMI] 25.0-25.9, adult | CPT/HCPCS: 97803 ==

== ENCOUNTER 2023-12-15 08:11 | Outpatient (RCR) | payer OTHER, SELFPAY | END 2023-12-29 23:59 | LOC: NS 08:11 | PROVIDERS: PCP Internal Medicine; Referring Provider Internal Medicine; Visit Provider Internal Medicine | DX: Z71.3 Dietary counseling and surveillance (principal); E66.3 Overweight; Z68.29 Body mass index [BMI] 29.0-29.9, adult | CPT/HCPCS: 97803 ==

== ENCOUNTER 2024-01-19 08:02 | Outpatient (RCR) | payer OTHER, SELFPAY | END 2024-01-27 23:59 | LOC: NS 08:02 | PROVIDERS: PCP Internal Medicine; Referring Provider Internal Medicine; Visit Provider Internal Medicine | DX: Z71.9 Counseling, unspecified (principal); E66.3 Overweight; Z68.29 Body mass index [BMI] 29.0-29.9, adult | CPT/HCPCS: 97803 ==

== ENCOUNTER 2024-05-04 08:04 | Outpatient (RCR) | payer OTHER, SELFPAY | END 2024-05-28 23:59 | LOC: NS 08:04 | PROVIDERS: PCP Internal Medicine; Referring Provider Internal Medicine; Visit Provider Internal Medicine | DX: Z71.9 Counseling, unspecified (principal); E66.3 Overweight | CPT/HCPCS: 97803 ==

== ENCOUNTER 2024-07-11 08:03 | Outpatient (RCR) | payer OTHER, SELFPAY | END 2024-07-29 23:59 | LOC: NS 08:03 | PROVIDERS: PCP Internal Medicine; Referring Provider Internal Medicine; Visit Provider Internal Medicine | DX: Z71.3 Dietary counseling and surveillance (principal); E66.3 Overweight; Z68.29 Body mass index [BMI] 29.0-29.9, adult | CPT/HCPCS: 97803 ==

== ENCOUNTER 2024-12-06 07:59 | Outpatient (RCR) | payer OTHER, SELFPAY | END 2024-12-29 23:59 | LOC: NS 07:59 | PROVIDERS: PCP Internal Medicine; Referring Provider Internal Medicine; Visit Provider Internal Medicine | DX: Z71.9 Counseling, unspecified (principal); E66.3 Overweight; Z68.30 Body mass index [BMI] 30.0-30.9, adult | CPT/HCPCS: 97803 ==

== ENCOUNTER → 2024-12-08 | Outpatient (CLI) | payer OTHER, SELFPAY ==
[2024-12-08 12:06] LABS: Absolute Lymphocyte Count 1.51 X10^3/uL (0.83-4.51); Absolute Neutrophil Count 4.7 X10^3/uL (2.0-7.7); Basophil# 0.04 X10^3/uL; Basophil% 0.6 % (0-1); Eosinophil# 0.19 X10^3/uL; Eosinophils% 2.7 % (0-5); Hematocrit 41.7 % (37-47); Hemoglobin 13.5 g/dL (12.0-15.0); Lymphocyte # 1.51 X10^3/ul (0.83-4.51); Lymphocyte % 21.8 % (19-41); Mean Corp Hgb Conc 32.4 g/dL (32-36); Mean Corpuscular Hgb 29.6 pg (27.0-32.0); Mean Corpuscular Volume 91.4 fL (81-99); Mean Platelet Vol. 10.3 fl (6.2-12.0); Monocyte# 0.44 X10^3/uL; Monocyte% 6.4 % (0-10); NRBC Flagged by Analyzer 0 % (0-5); Neutrophil # 4.72 X10^3/uL (2.7-7.7); Neutrophil % 68.2 % (47-70); Platelet Count 243 K/mm3 (150-450); RBC Distribution Width CV 12.4 % (11.6-14.6); RBC Distribution Width SD 41.2 fl (35.1-43.9); Red Blood Count 4.56 M/mm3 (4.2-5.4); White Blood Count 6.9 K/mm3 (4.4-11.0)
[2024-12-08 12:16] LABS: Vitamin D,25 Hydroxy 46.6 ng/mL
[2024-12-08 12:38] LABS: AST(SGOT) 10 U/L (15-37); Alanine Aminotransfer ALT/SGPT 19 U/L (13-56); Albumin, Serum 3.6 g/dL (3.2-5.0); Alkaline Phosphatase 50 U/L (45-117); Anion Gap 4 (5-15); BUN 11 mg/dL (7-18); BUN/Creat Ratio 13.1 RATIO (10-20); Calcium,Total 8.9 mg/dL (8.5-10.1); Chloride 107 mmol/L (98-107); Cholesterol 207 mg/dL (200); Creatinine, Serum 0.84 mg/dL (0.55-1.02); EST Glomerular Filtration Rate 77 mL/min (>60); Est Glom Filt Rate - Afr Amer 94 mL/min (>60); Globulin 3.5 g/dL (2.2-4.2); Glucose 88 mg/dL (74-106); High Density Lipoprotein 58 mg/dL; Potassium 4.2 mmol/L (3.5-5.1); Protein, Total 7.1 g/dL (6.4-8.2); Sodium Level 137 mmol/L (136-145); Triglycerides 69 mg/dL; Very Low Density Lipoprotein 14 mg/dL (5-40)
[2024-12-11 17:07] LABS: Lipoprotein A 81.8 nmol/L (<75.0)
== END | disposition home or self-care (01) ==
LOC: BIMLAB 08:41
PROVIDERS: PCP Internal Medicine; Referring Provider Physician Assistant; Visit Provider Physician Assistant
DX: Z00.00 Encounter for general adult medical examination without abnormal findings (principal); E66.3 Overweight; Z68.25 Body mass index [BMI] 25.0-25.9, adult; Z83.438 Family history of other disorder of lipoprotein metabolism and other lipidemia; E55.9 Vitamin D deficiency, unspecified
CPT/HCPCS: 36415; 80053; 80061; 82306; 83695; 84443; 85025

== ENCOUNTER → 2025-03-02 | Outpatient (CLI) | payer OTHER, SELFPAY ==
--- NOTE | 2025-03-02 07:44 | CT_ITS ---
PROCEDURE: ABDOMEN/PELVIS WITH CONTRAST 03/02/2025 REASON FOR EXAM: PAIN TECHNIQUE: Multiple contiguous axial images through the abdomen and pelvis were obtained after the administration of intravenous contrast. Two-dimensional coronal and sagittal reformatted images were reconstructed. Low-dose imaging technique was utilized. COMPARISON: None FINDINGS: Lung bases are clear. Liver, spleen, pancreas and adrenal glands are intact. Gallbladder is satisfactory. No significant biliary ductal dilation. Kidneys enhance symmetrically. No suspicious renal mass, calculi or hydronephrosis. Urinary bladder is intact. Uterus is present and contains an IUD. Fecal retention. No bowel obstruction, focal bowel wall thickening or significant perienteric inflammation. No pelvic free fluid. No free air. No abdominal aortic aneurysm or suspicious adenopathy. Small fat containing umbilical hernia. No acute osseous abnormality. CT/Abdomen/Pelvis WITH Contrast IMPRESSION: No acute process. Reading Location: [facility]
== END | disposition home or self-care (01) ==
LOC: CT 07:44
PROVIDERS: PCP Internal Medicine; Referring Provider Physician Assistant; Visit Provider Physician Assistant
DX: R10.84 Generalized abdominal pain (principal)
CPT/HCPCS: 74177; Q9967

== ENCOUNTER 2025-03-14 08:02 | Outpatient (RCR) | payer OTHER, SELFPAY | END 2025-03-28 23:59 | LOC: NS 08:02 | PROVIDERS: PCP Internal Medicine; Referring Provider Internal Medicine; Visit Provider Internal Medicine | DX: Z71.3 Dietary counseling and surveillance (principal); E66.3 Overweight; Z68.30 Body mass index [BMI] 30.0-30.9, adult | CPT/HCPCS: 97803 ==

== ENCOUNTER 2025-07-18 07:58 | Outpatient (RCR) | payer OTHER, SELFPAY | END 2025-07-29 23:59 | LOC: NS 07:58 | PROVIDERS: PCP Internal Medicine; Referring Provider Internal Medicine; Visit Provider Internal Medicine | DX: Z71.3 Dietary counseling and surveillance (principal); E66.3 Overweight; Z68.29 Body mass index [BMI] 29.0-29.9, adult | CPT/HCPCS: 97803 ==

== ENCOUNTER → 2025-09-05 | Outpatient (CLI) | payer OTHER, SELFPAY ==
[2025-09-05 10:37] LABS: Hematocrit 39.7 % (37-47); Hemoglobin 13.4 g/dL (12.0-15.0); Immature Granulocytes Count 0.020 X10^3/uL (0.0-0.0); Mean Corp Hgb Conc 33.8 g/dL (32-36); Mean Corpuscular Volume 87.8 fL (81-99); Mean Platelet Vol. 10.1 fl (6.2-12.0); NRBC Flagged by Analyzer 0 % (0-5); Platelet Count 259 K/mm3 (150-450); RBC Distribution Width CV 12.7 % (11.6-14.6); RBC Distribution Width SD 40.7 fl (35.1-43.9); Red Blood Count 4.52 M/mm3 (4.2-5.4); White Blood Count 6.6 K/mm3 (4.4-11.0)
[2025-09-05 12:17] LABS: AST(SGOT) 14 U/L (<=31); Alanine Aminotransfer ALT/SGPT 11 U/L (<=34); Albumin, Serum 4.1 g/dL (3.5-5.0); Alkaline Phosphatase 47 U/L (35-104); Anion Gap 12 (5-15); BUN 11 mg/dL (4-19); BUN/Creat Ratio 13.3 RATIO (10-20); Calcium,Total 9.3 mg/dL (7.6-11.0); Carbon Dioxide 21.1 mmol/L (21.0-32.0); Chloride 105 mmol/L (98-108); Cholesterol 216 mg/dL (<=200); Globulin 2.8 g/dL (2.2-4.2); Glucose 84 mg/dL (70-99); Low Density Lipoprotein Calc. 141 mg/dL; Potassium 3.9 mmol/L (3.3-5.1); Triglycerides 78 mg/dL; Very Low Density Lipoprotein 16 mg/dL (5-40); cholesterol:hdl ratio screen 3.65
== END | disposition home or self-care (01) ==
LOC: MTLAB 07:46
PROVIDERS: PCP Internal Medicine; Referring Provider Internal Medicine; Visit Provider Internal Medicine
DX: Z00.00 Encounter for general adult medical examination without abnormal findings (principal)
CPT/HCPCS: 36415; 80053; 80061; 85025